=== PATIENT | female | born 1980 | race Caucasian/White ===

== ENCOUNTER 2017-09-21 10:28 | Emergency (ER) | payer BC, OTHER ==
[~2017-09-21] VITALS: Ht 162.6 cm; Wt 78.7 kg
[~2017-09-21 10:28] MED LIST: CELE1CAP30 PO; CHOL400T PO; LISI5TAB3 PO; MEDR10TA9 PO; WARF10TA4 PO; WARF5TAB7 PO
[2017-09-21 10:44] VITALS: TEMP 37; Ht 162.6 cm; Wt 78.7 kg
[2017-09-21 11:30] VITALS: O2SAT 98
[2017-09-21] MEDS ORDERED: CYM60 PO (11:33)
[2017-09-21] MEDS ORDERED: LISI-729 PO (11:33)
[2017-09-21 12:09] VITALS: BP 132/93; O2SAT 99
[2017-09-21 12:17] VITALS: PULSE 123
--- NOTE | 2017-09-21 12:56 | EMERGENCY ROOM VISIT NOTE ---
History Report prepared by Rosie: Ge Cole Under the Supervision of: Dr. Leana Lazar D.O. First contact with patient: 11:52 Chief Complaint: WEAKNESS Stated Complaint: MUSCLE WEAKNESS Nursing Triage Summary: pt reports she has been having difficulty walking , her gait is off for approx 4 months has been to see neurologist next appt mid october does not think she is getting anywhere with neurologist decided to come here. steam finisher started with then pt and then neurologist. cannot get back to see her to get testing done History of Present Illness The patient is a 37 year old female who presents to the Emergency Room with complaints of persistent bilateral lower extremity weakness beginning four months ago. She states that she has been having problems with balance and walking, and has been using a cane at home to ambulate. She has seen a steam finisher for the past two years for pain in her feet, and has been diagnosed with fibromyalgia. The patient has had a MRI/EMG as an outpt with her neurologist. She is scheduled to see neurology in a few weeks. She also complains of forgetfulness. The patient has had physical therapy for her leg weakness, but nothing has improved her symptoms. She has no known family history of MS or neurologic disease. Pt states here because her ability to ambulate continues to worsen and she is afraid she will lose her job. No fevers , no new changes. Pt is using a cane at home to help get around. Source of History: patient Onset: Four months ago Position: leg (bilateral) Quality: other (weakness) Timing: other (persistent) Modifying Factors (Relieving): other (none) Note: The patient also complains of forgetfulness. Review of Systems See HPI for pertinent positives & negatives. A total of 10 systems reviewed and were otherwise negative. Past Medical & Surgical Medical Problems: (1) Abdominal pain (2) Chronic female pelvic pain (3) DVT (deep venous thrombosis) (4) Endometriosis (5) Factor V deficiency (6) Fibromyalgia (7) Headache (8) Urinary frequency Surgical Problems: (1) S/P laparoscopic hysterectomy (2) S/P total hysterectomy and bilateral salpingo-oophorectomy Family History No pertinent family history stated. Social History Smoking Status: Current Every Day Smoker Alcohol Use: none Drug Use: none Marital Status: Housing Status: lives with family Occupation Status: employed Current/Historical Medications Scheduled Celecoxib (Celecoxib), 200 MG PO QAM Cholecalciferol (Vitamin D), 400 UNITS PO QAM Duloxetine HCl (Duloxetine HCl), 60 MG PO DAILY Lisinopril (Prinivil), 5 MG PO QAM Warfarin Sod (Jantoven), 5 MG PO WK Warfarin Sod (Jantoven), 10 MG PO 6XWK Allergies Coded Allergies: No Known Allergies (Verified , 09/21/17) Physical Exam Vital Signs Date Time Temp Pulse Resp B/P (MAP) Pulse Ox O2 Delivery O2 Flow Rate FiO2 09/21/17 12:17 123 09/21/17 12:09 101 18 132/93 99 Room Air 09/21/17 11:30 98 09/21/17 11:02 85 16 137/98 97 Room Air 09/21/17 10:44 37.0 110 18 165/100 99 Room Air Physical Exam GENERAL: Tearful, alert, well appearing, well nourished, no distress, non-toxic EYE EXAM: normal conjunctiva, PERRL and EOM's grossly intact OROPHARYNX: no exudate, no erythema, lips, buccal mucosa, and tongue normal and mucous membranes are moist NECK: supple, no nuchal rigidity, no adenopathy, non-tender LUNGS: Clear to auscultation. Normal chest wall mechanics HEART: no murmurs, S1 normal and S2 normal ABDOMEN: abdomen soft, non-tender, normo-active bowel sounds, no masses, no rebound or guarding. BACK: Back is symmetrical on inspection and there is no deformity, no midline tenderness, no CVA tenderness. SKIN: no rashes and no bruising UPPER EXTREMITIES: upper extremities are grossly normal. LOWER EXTREMITIES: No pitting edema. NEURO EXAM: Normal sensorium, cranial nerves II-XII grossly intact, normal speech, no gross weakness of arms, no gross weakness of legs. Medical Decision & Procedures ED Course 1210: The patient was evaluated in room C3. A complete history and physical exam was performed. 1240: While attempting to obtain outpatient records, pt demanded her IV be pulled and told nursing staff she was leaving. 1256: Old records obtained. Case mgmt states pt has appt with Dr. Dahl 09/28. 1300: The patient eloped. Medical Decision Differential diagnosis: Etiologies such as metabolic, infection, hypo/hyperglycemia, electrolyte abnormalities, cardiac sources, intracerebral event, toxicologic, neurologic, as well as others were entertained. Pt with chronic and ongoing problem this is being evaluated by neurology. Pt has had appropriate outpt testing and is scheduled to f/u with neurology. While I understand pt's frustration with the process and concern for her job, I discussed with her that without having neurology accurately interpret and review all results to determine if additional testing needed or arrive at a diagnosis, I am unsure how else to aid her given there have been no new changes. No sx to suggest additional infection, renal failure, electrolyte abnormality, etc. Symptoms generalized, not suggestive of CVA. MRI obtained and lesions seem, but not read as classic for MS. Pt did not wait for these records to be obtained. Case mgmt called to alert pt that f/u neurology appt is this coming Thursday. Pt left before signing AMA form. Impression Primary Impression: Ambulatory dysfunction Scribe Attestation The scribe's documentation has been prepared under my direction and personally reviewed by me in its entirety. I confirm that the note above accurately reflects all work, treatment, procedures, and medical decision making performed by me. Departure Information Dispostion Other (Eloped) Referrals Vandana Steen D.O. (PCP) Patient Instructions My [facility]
== END 2017-09-21 12:40 | disposition left against medical advice (07) ==
LOC: C.EDB 10:30 → C.EDC 12:40
DX: R26.89 Other abnormalities of gait and mobility (principal); M79.7 Fibromyalgia; Z86.718 Personal history of other venous thrombosis and embolism; Z90.710 Acquired absence of both cervix and uterus; D68.51 Activated protein C resistance; F17.210 Nicotine dependence, cigarettes, uncomplicated; Z79.01 Long term (current) use of anticoagulants; Z79.899 Other long term (current) drug therapy

== ENCOUNTER 2017-10-31 21:46 | Emergency (ER) | payer OTHER ==
[~2017-10-31] VITALS: Ht 162.6 cm; Wt 77.8 kg
[~2017-10-31 21:46] MED LIST changes: +CYM60 PO; +LISI-729 PO; -LISI5TAB3 PO; -MEDR10TA9 PO
[2017-10-31 21:50] VITALS: TEMP 36.8
[2017-10-31] MEDS ORDERED: DiphenhydrAMINE HCL 50 MG/ML VIAL IV STA (22:07)
[2017-10-31] MEDS ORDERED: METOCLOPRAMIDE HCL INJ 5 MG/ML 2 ML VIAL IV STA (22:07)
[2017-10-31] MEDS ORDERED: SODIUM CHLORIDE 0.9% 1000ML 1,000 ML IV STA (22:07)
[2017-10-31] MEDS ORDERED: LRS20 PO (22:20)
[2017-10-31] MEDS ORDERED: ACET-1256 PO (22:21)
[2017-10-31 22:39] VITALS: O2SAT 100; Ht 162.6 cm; Wt 77.8 kg
--- NOTE | 2017-10-31 22:50 | DIAGNOSTIC IMAGING REPORT ---
HEAD WITHOUT CONTRAST (CT) CLINICAL HISTORY: 37 years-old Female presenting with JAY, on coumadin. TECHNIQUE: Multidetector CT imaging of the head was performed without the use of intravenous contrast. IV contrast: None. A dose lowering technique was used consistent with the principles of ALARA (as low as reasonably achievable). COMPARISON: 06/07/2015. CT DOSE (mGy.cm): The estimated cumulative dose is 580.48 mGy.cm. FINDINGS: Space Officer topogram: Unremarkable. Ventricles and sulci normal in size. Brain parenchyma normal in appearance with preserved acevedo-white differentiation. No mass effect or midline shift. No hemorrhage or acute territorial infarct. No extra-axial fluid collection. Paranasal sinuses and mastoid air cells clear. Calvarium intact. IMPRESSION: 1. No acute intracranial abnormality. Electronically signed by: Boris Earl M.D. 10/31/2017 10:49 PM Dictated Date/Time: 10/31/2017 10:47 PM
[2017-10-31 23:03] LABS: INR 1.6 (0.9-1.1); PTT PATIENT 30.1 SECONDS (21.0-31.0)
[2017-10-31 23:15] LABS: ALBUMIN 3.9 gm/dl (3.4-5.0); ALT/SGPT 45 U/L (12-78); BLOOD UREA NITROGEN 16 mg/dl (7-18); CALCIUM 8.4 mg/dl (8.5-10.1); CARBON DIOXIDE 28 mmol/L (21-32); CREATININE 0.79 mg/dl (0.60-1.20); GLUCOSE 104 mg/dl (70-99); POTASSIUM 3.8 mmol/L (3.5-5.1); SODIUM 140 mmol/L (136-145)
[2017-10-31 23:26] LABS: ALKALINE PHOSPHATASE 93 U/L (45-117); AST/SGOT 20 U/L (15-37); TOTAL PROTEIN 7.3 gm/dl (6.4-8.2)
[2017-10-31 23:35] VITALS: PULSE 87; O2SAT 98
[2017-10-31 23:37] LABS: BASO % 0.5 %; BASO ABS # 0.04 K/uL (0-0.2); EOS % 2.1 %; EOS ABS # 0.17 K/uL (0-0.5); HEMATOCRIT 41.6 % (37-47); LYMPH % 39.6 %; LYMPH ABS # 3.17 K/uL (1.2-3.4); MEAN CELL VOLUME 95.2 fL (80-100); MEAN CORPUSCULAR HGB CONC 33.7 g/dl (32-36); MEAN PLATELET VOLUME 10.3 fL (7.4-10.4); MONO % 11.4 %; MONO ABS # 0.91 K/uL (0.11-0.59); NEUT % 46.4 %; NEUT ABS # 3.71 K/uL (1.4-6.5); PLATELET COUNT 230 K/uL (130-400); RED CELL DISTRIBUTION WIDTH CV 13.1 % (11.5-14.5); RED CELL DISTRIBUTION WIDTH SD 45.8 fL (36.4-46.3)
[2017-10-31 23:42] VITALS: BP 109/65
--- NOTE | 2017-11-01 04:49 | EMERGENCY ROOM VISIT NOTE ---
History First contact with patient: 21:58 Chief Complaint: HEADACHE Stated Complaint: HEADACHE, DIZZY, NAUSEA, WEAKNESS History of Present Illness The patient is a 37 year old female who presents to the Emergency Room with complaints of headache, lightheadedness, nausea, generalized weakness for the past week and half who has had ongoing chronic fatigue and headaches who is currently being worked up by neurology at [place]. Patient had a LP week and half ago for MS workup. Patient states nothing makes her headaches better or worse. Headache described as throbbing, ranging in severity 6/ 10 throughout the temporal region. It does not radiate. Patient states this is not feeling spinal headache. Patient denies fever, chills, cold symptoms, neck stiffness, sore throat, localized weakness, chest pain, dyspnea, abdominal pain or any other medical complaints. Patient states she's mainly coming in for her headache. Headache was slow in onset. Patient is on Coumadin and was advised to hold the Coumadin for the LP. She has now resumed her Coumadin. Review of Systems See HPI for pertinent positives & negatives. A total of 10 systems reviewed and were otherwise negative. Past Medical/Surgical History Medical Problems: (1) Abdominal pain (2) Chronic female pelvic pain (3) DVT (deep venous thrombosis) (4) Endometriosis (5) Factor V deficiency (6) Fibromyalgia (7) Headache (8) Urinary frequency Surgical Problems: (1) S/P laparoscopic hysterectomy (2) S/P total hysterectomy and bilateral salpingo-oophorectomy Social History Smoking Status: Current Every Day Smoker Alcohol Use: none Drug Use: none Marital Status: Housing Status: lives with family Occupation Status: employed Current/Historical Medications Scheduled Cholecalciferol (Vitamin D), 400 UNITS PO QAM Lisinopril (Prinivil), 10 MG PO QAM Warfarin Sod (Jantoven), 5 MG PO WK Warfarin Sod (Jantoven), 10 MG PO 6XWK Scheduled PRN Acetaminophen (Tylenol), 1,000 MG PO TID PRN for Pain or Fever Baclofen (Baclofen), 20 MG PO TID PRN for Muscle Spasms Physical Exam Vital Signs Date Time Temp Pulse Resp B/P (MAP) Pulse Ox O2 Delivery O2 Flow Rate FiO2 10/31/17 23:42 109/65 10/31/17 23:35 87 15 98 10/31/17 23:30 112/56 10/31/17 23:16 88 20 97 10/31/17 23:00 110/65 10/31/17 22:51 100 18 136/77 97 Room Air 10/31/17 22:46 100 18 133/85 100 Room Air 10/31/17 22:39 100 Room Air 10/31/17 22:39 99 18 125/85 100 Room Air 100 133/85 104 135/90 10/31/17 22:33 119/84 10/31/17 22:29 90 10/31/17 22:25 135/90 10/31/17 21:50 36.8 115 20 144/92 100 Room Air Physical Exam VITALS: Vitals are noted on the nurse's note and reviewed by myself. Vital signs stable. GENERAL: Pleasant female, in no acute distress, nondiaphoretic, well-developed well-nourished. SKIN: The skin was without rashes, erythema, edema, or bruising. There is no tenting of the skin. Capillary reflex less than 2 seconds. HEAD: Normocephalic atraumatic. EARS: External auditory canals clear, tympanic membranes pearly acevedo without erythema or effusion bilaterally. EYES: Pupils equal round and reactive to light and accommodation. Conjunctivae without injection, sclerae without icterus. Extraocular movements intact. NOSE: Patent, turbinates without inflammation or discharge. No sinus tenderness. MOUTH: Mucous membranes moist. Pharynx without erythema or exudate. Uvula midline. Airway patent. Tongue does not deviate. NECK: Supple without nuchal rigidity. No lymphadenopathy. No thyromegaly. Cervical spine is nontender. No JVD. No meningeal signs HEART: Regular rate and rhythm without murmurs gallops or rubs. LUNGS: Clear to auscultation bilaterally without wheezes, rales or rhonchi. No dullness to percussion. No retractions or accessory muscle use. ABDOMEN: Positive bowel sounds x 4. Normal tympanic percussion. Soft, nontender, without masses or organomegaly. Mclean sign negative. No guarding or rebound tenderness. MUSCULOSKELETAL: No muscle atrophy, erythema, or edema noted. NEURO: Patient was alert and oriented to person place and time. Normal sensation to light and sharp touch. No focal neurological deficits. Cranial nerves II-12 grossly intact. No pronator drift. Medical Decision & Procedures Laboratory Results 10/31/17 22:35 Red Blood Count 4.37, Mean Corpuscular Volume 95.2, Mean Corpuscular Hemoglobin 32.0, Mean Corpuscular Hemoglobin Concent 33.7, Mean Platelet Volume 10.3, Neutrophils (%) (Auto) 46.4, Lymphocytes (%) (Auto) 39.6, Monocytes (%) (Auto) 11.4, Eosinophils (%) (Auto) 2.1, Basophils (%) (Auto) 0.5, Neutrophils # (Auto ) 3.71, Lymphocytes # (Auto) 3.17, Monocytes # (Auto) 0.91, Eosinophils # (Auto ) 0.17, Basophils # (Auto) 0.04 10/31/17 22:35 Test 10/31/17 22:18 10/31/17 22:35 10/31/17 22:38 Urine Color YELLOW Urine Appearance CLEAR (CLEAR) Urine pH 7.0 (4.5-7.5) Urine Specific [place] 1.018 (1.000-1.030) Urine Protein NEG (NEG) Urine Glucose (UA) NEG (NEG) Urine Ketones NEG (NEG) Urine Occult Blood NEG (NEG) Urine Nitrite NEG (NEG) Urine Bilirubin NEG (NEG) Urine Urobilinogen NEG (NEG) Urine Leukocyte Esterase SMALL (NEG) Urine WBC (Auto) 5-10 /hpf (0-5) Urine RBC (Auto) 0-4 /hpf (0-4) Urine Hyaline Casts (Auto) 0 /lpf (0-5) Urine Epithelial Cells (Auto) >30 /lpf (0-5) Urine Bacteria (Auto) NEG (NEG) White Blood Count 8.00 K/uL (4.8-10.8) Red Blood Count 4.37 M/uL (4.2-5.4) Hemoglobin 14.0 g/dL (12.0-16.0) Hematocrit 41.6 % (37-47) Mean Corpuscular Volume 95.2 fL (80-100) Mean Corpuscular Hemoglobin 32.0 pg (25-34) Mean Corpuscular Hemoglobin Concent 33.7 g/dl (32-36) Platelet Count 230 K/uL (130-400) Mean Platelet Volume 10.3 fL (7.4-10.4) Neutrophils (%) (Auto) 46.4 % Lymphocytes (%) (Auto) 39.6 % Monocytes (%) (Auto) 11.4 % Eosinophils (%) (Auto) 2.1 % Basophils (%) (Auto) 0.5 % Neutrophils # (Auto) 3.71 K/uL (1.4-6.5) Lymphocytes # (Auto) 3.17 K/uL (1.2-3.4) Monocytes # (Auto) 0.91 K/uL (0.11-0.59) Eosinophils # (Auto) 0.17 K/uL (0-0.5) Basophils # (Auto) 0.04 K/uL (0-0.2) RDW Standard Deviation 45.8 fL (36.4-46.3) RDW Coefficient of Variation 13.1 % (11.5-14.5) Immature Granulocyte % (Auto) 0.0 % Immature Granulocyte # (Auto) 0.00 K/uL (0.00-0.02) Prothrombin Time 16.9 SECONDS (9.0-12.0) Prothromb Time International Ratio 1.6 (0.9-1.1) Activated Partial Thromboplast Time 30.1 SECONDS (21.0-31.0) Partial Thromboplastin Ratio 1.2 Anion Gap 6.0 mmol/L (3-11) Est Creatinine Clear Calc Drug Dose 98.4 ml/min Estimated GFR () 110.8 Estimated GFR (Non- 95.6 BUN/Creatinine Ratio 19.7 (10-20) Calcium Level 8.4 mg/dl (8.5-10.1) Magnesium Level 2.2 mg/dl (1.8-2.4) Total Bilirubin 0.2 mg/dl (0.2-1) Direct Bilirubin < 0.1 mg/dl (0-0.2) Aspartate Amino Transf (AST/SGOT) 20 U/L (15-37) Alanine Aminotransferase (ALT/SGPT) 45 U/L (12-78) Alkaline Phosphatase 93 U/L (45-117) Total Protein 7.3 gm/dl (6.4-8.2) Albumin 3.9 gm/dl (3.4-5.0) Thyroid Stimulating Hormone (TSH) 2.250 uIu/ml (0.300-4.500) Human Chorionic Gonadotropin, Qual NEG (NEG) Bedside Troponin I < 0.030 ng/ml (0-0.045) Medications Administered Medications (Trade) Dose Ordered Sig/Isabell Route Start Time Stop Time Status Last Admin Dose Admin Metoclopramide HCl (Reglan Inj) 10 mg NOW STAT IV 10/31/17 22:07 10/31/17 22:10 DC 10/31/17 22:20 10 MG Diphenhydramine HCl (Benadryl Inj) 25 mg NOW STAT IV 10/31/17 22:07 10/31/17 22:10 DC 10/31/17 22:20 25 MG Sodium Chloride 1,000 ml @ 999 mls/hr Q1H1M STAT IV 10/31/17 22:07 10/31/17 23:07 DC 10/31/17 22:07 999 MLS/HR ED Course Prior records/ancillary studies reviewed and summarized above. Nursing notes reviewed. The patient's history was concerning for headache, fatigue, weakness. Differential diagnosis: Etiologies such as metabolic, infection, hypo/hyperglycemia, electrolyte abnormalities, cardiac sources, intracerebral event, toxicologic, neurologic, as well as others were entertained. Physical examination: As above. ER treatment provided: IV Lock Reglan, Benadryl On reassessment the patient felt better. Diagnostics interpretation by me: ECG: Normal sinus, normal intervals, no acute ST-T wave changes. Impression normal sinus rhythm interpreted by myself The labs revealed subtherapeutic INR. Imaging studies: HEAD WITHOUT CONTRAST (CT) CLINICAL HISTORY: 37 years-old Female presenting with JAY, on coumadin. TECHNIQUE: Multidetector CT imaging of the head was performed without the use of intravenous contrast. IV contrast: None. A dose lowering technique was used consistent with the principles of ALARA (as low as reasonably achievable). COMPARISON: 06/07/2015. CT DOSE (mGy.cm): The estimated cumulative dose is 580.48 mGy.cm. FINDINGS: Supervisor Coffee topogram: Unremarkable. Ventricles and sulci normal in size. Brain parenchyma normal in appearance with preserved acevedo-white differentiation. No mass effect or midline shift. No hemorrhage or acute territorial infarct. No extra-axial fluid collection. Paranasal sinuses and mastoid air cells clear. Calvarium intact. IMPRESSION: 1. No acute intracranial abnormality. Electronically signed by: Boris Earl M.D. 10/31/2017 10:49 PM Dictated Date/Time: 10/31/2017 10:47 PM Exam and history seem consistent with headache with ongoing fatigue and weakness. Patient was neurovascularly and neurologically intact. She is subtherapeutic INR as she recently had a LP. She is advised to resume her Coumadin schedule as directed by the family care doctor. She is advised to follow-up as scheduled with her neurologist in [place] and to see her family doctor in a few days or here in the ER sooner for headache, fevers, confusion, worsening signs or symptoms or as needed. Patient felt much better after being medicated as above. No acute findings are noted on exam and only subtherapeutic INR on laboratory testing. By the evaluation outlined above emergent etiologies such as infection, electrolyte abnormalities, cardiac sources, intracerebral event, toxologic, neurologic, abnormalities blood glucose, metabolic, as well as others were deemed relatively unlikely. The pt informed about the findings as listed above. All questions were answered and pleased with the treatment. Return instructions were outlined and the patient was discharged in stable condition. Referral: The patient was referred back to primary care physician for follow-up in 2 to 3 days for a recheck of the current condition. Case reviewed with my attending Medical Decision As above Medication Reconcilliation Current Medication List: was personally reviewed by me Blood Pressure Screening Patient's blood pressure: Normal blood pressure Impression Primary Impression: Headache Additional Impression: subtherapeutic INR Departure Information Dispostion Home / Self-Care Condition FAIR Referrals No Doctor, Assigned (PCP) Forms HOME CARE DOCUMENTATION FORM, IMPORTANT VISIT INFORMATION Patient Instructions My [facility] Problem Qualifiers Primary Impression: Headache Headache type: tension-type Headache chronicity pattern: acute headache Intractability: not intractable Qualified Codes: G44.209 - Tension-type headache, unspecified, not intractable
== END 2017-11-01 00:03 | disposition home or self-care (01) ==
LOC: C.EDB 21:47 → C.EDA 11-01 00:03
DX: R51 Headache (principal); R42 Dizziness and giddiness; R11.0 Nausea; R53.1 Weakness; D68.51 Activated protein C resistance; M79.7 Fibromyalgia; F17.200 Nicotine dependence, unspecified, uncomplicated; Z79.01 Long term (current) use of anticoagulants; Z86.718 Personal history of other venous thrombosis and embolism